=== PATIENT | female | born 1980 | race Caucasian/White ===

== ENCOUNTER 2018-06-17 09:47 | Outpatient (RCR) | payer OTHER, SELFPAY | END 2018-06-17 23:59 | LOC: NS 09:47 | PROVIDERS: Visit Provider Preventive Medicine Occupational Medicine | DX: E66.01 Morbid (severe) obesity due to excess calories (principal); Z68.43 Body mass index [BMI] 50.0-59.9, adult; Z71.3 Dietary counseling and surveillance ==

== ENCOUNTER → 2018-07-18 17:14 | Outpatient (CLI) | payer OTHER, SELFPAY ==
[2018-07-18 18:56] LABS: Chlamydia Trachomatis by PCR Negative (Negative); Neisserai gonorrhoeae by PCR Negative (Negative); Probe Check PASS; Sample Adequacy Control PASS; Specimen Processing Control PASS
== END ==
PROVIDERS: Referring Provider Nurse Practitioner Women's Health; Visit Provider Nurse Practitioner Women's Health
DX: R10.2 Pelvic and perineal pain (principal)
CPT/HCPCS: 87491; 87591

== ENCOUNTER 2018-07-19 09:02 | Outpatient (RCR) | payer MEDICAID, SELFPAY | END 2018-07-19 23:59 | LOC: NS 09:02 | PROVIDERS: Visit Provider Preventive Medicine Occupational Medicine | DX: E66.01 Morbid (severe) obesity due to excess calories (principal); Z68.43 Body mass index [BMI] 50.0-59.9, adult; Z71.3 Dietary counseling and surveillance | CPT/HCPCS: 97802 ==

== ENCOUNTER → 2018-07-28 11:37 | Outpatient (CLI) | payer SELFPAY ==
--- NOTE | 2018-07-28 11:40 | US_ITS ---
STUDY: ULTRASOUND OF THE FEMALE PELVIS - COMPLETE REASON FOR EXAM: Female, 37 years old. Lower pelvic pain for 2 months LMP: 07/22/2018 TECHNIQUE: Transabdominal imaging is performed with subsequent endovaginal imaging performed due to inadequate acoustic window through urinary bladder (decompressed) TECHNICAL QUALITY: Adequate. COMPARISON: None. FINDINGS: The uterus is anteverted and is in a midline position. The uterus measures 7.4 x 5.2 x 3.6 cm. Normal uterine cervix. The endometrium measures 3.0 mm in thickness, and is hyperechoic. There are uterine fibroids measuring up to 1.6 cm. There is no demonstrated myometrial mass. I.U.D. - The patient does not have an I.U.D. The right ovary is visualized. The right ovary measures 4.0 x 2.5 x 2.3 cm. There is no right ovarian cyst or ovarian mass. There is no visualized right adnexal mass or complex lesion. There is normal arterial and normal venous vascularity. The left ovary is visualized. The left ovary measures 2.8 x 1.9 x 1.5 cm. There is no left ovarian cyst or ovarian mass. There is no visualized left adnexal mass or complex lesion. There is normal arterial and normal venous vascularity. There is no fluid in the cul-de-sac. Visualized urinary bladder is unremarkable but nondistended. US/Transvaginal Non- IMPRESSION: 1. Small uterine fibroids. 2. No adnexal masses. Electronically Signed: Jabari Adkins MD at 16:45 EDT , Service support ,
== END ==
PROVIDERS: Referring Provider Nurse Practitioner Women's Health; Visit Provider Nurse Practitioner Women's Health
DX: R10.2 Pelvic and perineal pain (principal)
CPT/HCPCS: 76830; 93976

== ENCOUNTER → 2020-07-16 | Outpatient (CLI) | payer OTHER, SELFPAY ==
[2020-07-16 15:31] LABS: Absolute Lymphocyte Count 2.05 X10^3/uL (0.83-4.51); Absolute Neutrophil Count 4.2 X10^3/uL (2.0-7.7); Basophil# 0.04 X10^3/uL; Basophil% 0.6 % (0-1); Eosinophil# 0.28 X10^3/uL; Hematocrit 38.7 % (37-47); Hemoglobin 11.5 g/dL (12.0-15.0); Lymphocyte # 2.05 X10^3/ul (4.0); Lymphocyte % 29.4 % (19-41); Mean Corp Hgb Conc 29.7 g/dL (32-36); Mean Corpuscular Hgb 25.1 pg (27.0-32.0); Mean Corpuscular Volume 84.3 fL (81-99); Mean Platelet Vol. 11.7 fl (6.2-12.0); Monocyte# 0.34 X10^3/uL; Monocyte% 4.9 % (0-10); NRBC Flagged by Analyzer 0 % (0-5); Neutrophil # 4.22 X10^3/uL (2.7-7.7); Neutrophil % 60.5 % (47-70); Platelet Count 314 K/mm3 (150-450); RBC Distribution Width CV 15.1 % (11.6-14.6); RBC Distribution Width SD 45.7 fl (35.1-43.9); Red Blood Count 4.59 M/mm3 (4.2-5.4)
[2020-07-16 15:36] LABS: Erythrocyte Sedimentation Rate 16 mm/hr (0-20)
[2020-07-16 16:10] LABS: Rheumatoid Factor < 10.0 IU/mL (<15)
[2020-07-18 17:38] LABS: ANTINUCLEAR ANTIBODIES DIRECT Negative (Negative)
[2020-07-19 04:32] LABS: CCP IgG Antibodies 4 units (0-19)
== END | disposition home or self-care (01) ==
LOC: BFHLAB 11:42
PROVIDERS: PCP Family Medicine; Referring Provider Family Medicine; Visit Provider Family Medicine
DX: N92.1 Excessive and frequent menstruation with irregular cycle (principal); M25.50 Pain in unspecified joint
CPT/HCPCS: 36415; 85025; 85652; 86038; 86140; 86200; 86431

== ENCOUNTER → 2020-09-06 10:15 | Outpatient (CLI) | payer OTHER, SELFPAY ==
[2018-07-18 14:37] VITALS: BMI 47.7
--- NOTE | 2020-09-06 10:24 | BI_ITS ---
MAMMOGRAPHY - BILATERAL SCREENING REASON FOR EXAM: Female, 39 years old. Routine annual screening examination. PERTINENT HISTORY: Non-contributory. TECHNIQUE: Digital bilateral breast johnie (3D mammographic acquisition) in the CC and MLO projections. 2-D mediolateral oblique (MLO) and craniocaudad (CC) views of both breasts were obtained. CAD: Full Field Digital Mammography with Computer Added Detection was performed. COMPARISON: Comparison is made with prior outside examination dated 12/11/2010. FINDINGS: Breast Composition: There are scattered areas of fibroglandular density. There are no dominant masses or suspicious calcifications. There is a 5.7 mm x 6 mm well-defined nodule in the deep upper outer aspect of the right breast. Correlation with ultrasound is recommended. Stable benign appearing bilateral axillary lymph nodes. No other significant abnormalities are identified. BI/SCREEN MAMM (CAD) W/JOHNIE BILAT IMPRESSION: 5.7 mm x 6 mm well-defined nodule in the deep upper outer aspect of the right breast. Correlation with ultrasound is recommended. ASSESSMENT CATEGORY: BIRADS Category 0: Incomplete. Need additional imaging evaluation. A letter regarding these results will be sent to the patient by the facility within 30 days. Approximately 10% of breast cancers are not detected by mammography. A normal mammogram should not delay biopsy of a clinically suspicious abnormality. [id number] Electronically Signed: Andrew Tracey, at 11:06 EST , Service support ,
== END ==
PROVIDERS: PCP Family Medicine; Referring Provider Family Medicine; Visit Provider Family Medicine
DX: Z12.31 Encounter for screening mammogram for malignant neoplasm of breast (principal); N63.11 Unspecified lump in the right breast, upper outer quadrant
CPT/HCPCS: 77063; 77067

== ENCOUNTER → 2020-09-09 09:59 | Outpatient (CLI) | payer OTHER, SELFPAY ==
--- NOTE | 2020-09-09 10:00 | US_ITS ---
STUDY: ULTRASOUND BREAST - RIGHT REASON FOR EXAM: Female, 39 years old. TECHNIQUE: Axial and longitudinal images of the RIGHT breast were performed with a high resolution ultrasound transducer. # OF IMAGES: [id number] COMPARISON: Previous mammogram obtained on 09/06/2020 FINDINGS: RIGHT Breast: There is a lesion in the right upper quadrant quadrant. The lesion measures 6.4 mm in size. Clock notation: 9 o''clock position. Posterior Enhancement: None Posterior Shadowing: None Margins: Smooth Echogenicity: Solid US/Breast Limited Unilateral IMPRESSION: The nodular densities noted in the superior lateral right breast which most likely represents a benign intramammary lymph node ASSESSMENT CATEGORY: BIRADS Category 2: Benign. A letter regarding these results will be sent to the patient by the facility within 30 days. Electronically Signed: Jordan Iqbal, at 16:29 EST Tel , Service support ,
== END ==
PROVIDERS: PCP Family Medicine; Referring Provider Family Medicine; Visit Provider Family Medicine
DX: N63.11 Unspecified lump in the right breast, upper outer quadrant (principal)
CPT/HCPCS: 76642

== ENCOUNTER → 2020-11-29 10:22 | Outpatient (CLI) | payer OTHER, SELFPAY ==
[2018-07-18 14:37] VITALS: BMI 47.7
--- NOTE | 2020-11-29 10:26 | RAD_ITS ---
STUDY: X-RAY - RIGHT KNEE REASON FOR EXAM: Right knee pain, fall about a year ago. TECHNIQUE: 4 view(s) of the knee. COMPARISON: None. FINDINGS: Normal visualized distal femur. Normal visualized proximal tibia and fibula. Normal proximal tibiofibular articulation. Normal medial femorotibial compartment. There are small marginal osteophytes, a surface osteophyte of the lateral femoral condyle and mild/moderate joint space narrowing of the lateral femorotibial compartment. There is mild lateral subluxation of the patella. There is mild enthesopathy of the patella. RAD/Knee 4 or More Views IMPRESSION: Arthrosis of the lateral femorotibial compartment. Mild lateral subluxation of the patella. Electronically Signed: Mack Leslie MD at 12:11 EST Tel , Service support ,
[2020-11-29 12:59] LABS: HIV - WCH Non-Reactive (Nonreactive)
[2020-12-05 01:10] LABS: Rapid Plasmin Reagin (RPR) NONREACTIVE (NONREACTIVE)
[2020-12-10 18:23] LABS: Chlamydia Trachomatis by PCR Negative (Negative); Neisserai gonorrhoeae by PCR Negative (Negative); Probe Check PASS; Sample Adequacy Control PASS; Specimen Processing Control PASS
== END ==
PROVIDERS: PCP Family Medicine; Referring Provider Family Medicine; Visit Provider Family Medicine
DX: M25.561 Pain in right knee (principal); Z20.9 Contact with and (suspected) exposure to unspecified communicable disease
CPT/HCPCS: 36415; 73564; 86592; 86703; 87491; 87591